=== PATIENT | male | born 1995 | race Native Hawaiian/Other Pacific Islander ===

== ENCOUNTER 2019-11-07 17:09 | Outpatient (CLI) | payer BC ==
[2019-11-07 18:16] LABS: SODIUM 140 mmol/L (136-145)
== END 2019-11-07 19:13 | disposition home or self-care (01) ==
LOC: RAD 17:09
PROVIDERS: Nurse Practitioner Family
DX: M54.6 Pain in thoracic spine (principal); S29.019A Strain of muscle and tendon of unspecified wall of thorax, initial encounter
CPT/HCPCS: 36415; 80053; 82550; 82553; 84484

== ENCOUNTER 2021-01-09 14:28 | Outpatient (CLI) | payer OTHER ==
[2021-01-09 14:38] LABS: PLATELET COUNT 225 K/uL (142-355)
[2021-01-09 15:13] LABS: POTASSIUM 3.8 mmol/L (3.6-5.2)
== END 2021-01-09 21:44 | disposition home or self-care (01) ==
LOC: LABW 14:28
PROVIDERS: ATTEND Internal Medicine Hematology & Oncology
DX: D66 Hereditary factor VIII deficiency (principal)
CPT/HCPCS: 36415; 80053; 85027